=== PATIENT | female | born 1990 | race Caucasian/White ===

== ENCOUNTER → 2016-10-11 | Outpatient (CLI) | payer OTHER ==
--- NOTE | ~2016-10-11 | CR210 ---
[facility] A Service of [facility] & [facility] RADIOLOGY TEXT RESULTS PATIENT: FLAKITO HINOJOSA LOCATION: [facility] : [birth year] UNIT #: [id number] AGE: [address]: SEB AVILES MD SEX: F ORDER DR: [id number] [facility] [address] [place], [place] [address] [id number] MR#: [id number] Acc #: [id number] NAME: FLAKITO HINOJOSA : 1990 SEX: F STUDY DATE/TIME: 10/11/2016 13:19 UNIT: [facility] ROOM: STUDY DESCRIPTION: CR Ribs Uni 2 View W PA Ch Lt Attending Physician: Seb Aviles M.D. Ordering Physician: Seb Aviles M.D. Primary Care Physician: Seb Aviles M.D. MEDICAL IMAGING REPORT This report is preliminary unless electronic signature is present EXAM Frontal chest and left rib series, 10/11/2016 INDICATION 26-year-old female with left-sided rib pain. Sharp pain with bruising of a left rib. No known injury. Symptoms for a few days. TECHNIQUE Frontal chest and 2 views left ribs. No comparisons. FINDINGS Cardiac silhouette is within normal limits. Vascularity unremarkable. Lungs are clear. There is old healed granulomatous disease. No pneumothorax. No rib fracture. IMPRESSION Negative. Dictated by... Joaquim Barnes M.D. THIS IS AN ELECTRONICALLY VERIFIED REPORT Joaquim Barnes M.D. at 10/12/2016 7:43 AM Dominick TD: 10/11/2016 23:23 JOB #: [id number] MEDICAL IMAGING REPORT COPY
== END | disposition home or self-care (01) ==
LOC: CRAD 13:02
DX: R07.81 Pleurodynia (principal)
CPT/HCPCS: 71101

== ENCOUNTER 2016-10-31 08:00 | Inpatient (IN) | payer OTHER ==
--- NOTE | ~2016-10-31 | PA ---
Unit #: [id number] #: [id number] Patient: FLAKITO HINOJOSA [id number] [facility] [address] [place] [address] [id number] I MR#: [id number] NAME: FLAKITO HINOJOSA. ROOM: [facility] Age: 26 Sex: F Admission Date: 10/31/2016 : 1990 Date of Assessment: 11/01/2016 Attending Physician: Duane Ford M.D. Admitting Physician: Duane Ford M.D. Primary Care Physician: Tuyet Sesay M.D. PSYCHIATRIC ASSESSMENT DATE OF SERVICE 11/01/2016. INFORMANTS The patient, reliable; OLOP, reliable. CHIEF COMPLAINT Severe depression. HISTORY OF PRESENT ILLNESS Flakito is a 26-year-old woman who reports that she has been seen in [facility] and has had several medication adjustments recently. She is on Viibryd 40 mg daily, and both Abilify and Wellbutrin have been attempted as supplements with this medication without success. She has had increasing hopelessness and helplessness, and also feels that her "personality has changed." She has become more increasingly irritable and angry and recently broke up with a girlfriend as well as having increasing problems with other relationships. She woke up with suicidal ideation, and was unable to contract for safety. After assessment in the emergency room, she was transferred to [facility] for [facility] treatment. PAST PSYCHIATRIC HISTORY As noted, the patient is a client of [facility] and is currently seeing Dr. Gutierrez at [facility]. She denies any previous psychiatric hospitalizations. She is currently taking Viibryd 40 mg daily for depression and Wellbutrin XL 150 mg daily for antidepressant supplementation. FAMILY PSYCHIATRIC HISTORY There is a significant family history of bipolar disorder, alcoholism, and depression in the patient's family. SOCIAL HISTORY The patient finished partially through the eleventh grade. She has not been working due to her increasing depression and is currently living with a significant other. She has 2 children and these were being house by her parents. She has no current source of income. PAST MEDICAL HISTORY The patient reports she had a recent infection in her armpit which is being treated with antibiotics. Unit #: [id number] #: [id number] Patient: FLAKITO HINOJOSA MEDICATIONS Keflex 500 mg b.i.d. for further 10 days. ALLERGIES No known medication allergies. SUBSTANCE USE HISTORY The patient denied any history of chemical dependence. MENTAL STATUS EXAMINATION The patient presented as a neatly dressed and groomed woman who appeared her stated age. She demonstrated mild psychomotor agitation. Vital signs were temperature 98.5, pulse 94, respirations 20, and blood pressure 110/78. Her speech was spontaneous and easily understood. Her musculoskeletal examination demonstrated psychomotor agitation. Her mood was depressed and anxious with a congruent affect. She was alert and fully oriented. Her memory and concentration were fair to good. Her thought processes were goal directed with no active psychosis. She did report mildly psychotic symptoms prior to coming to the hospital including illusions of someone in the room with her. Her insight and judgment were fair. Her fund of knowledge and abstraction were fair. She continued to endorse suicidal ideation with a plan to overdose, but had no homicidal ideation. ASSETS AND LIABILITIES The patient is familiar with local resources and presents voluntarily for treatment. Liabilities include lack of response to current medication and recent relationship issues. ADMITTING DIAGNOSES AXIS I: Major depression with psychotic features, F33.3. AXIS II: Diagnosis deferred. AXIS III: Infection. AXIS IV: AXIS V: PSYCHIATRIC PLAN The patient was admitted and placed on suicide precautions. Viibryd for depression and Keflex for infection will be continued, but we will discontinue Wellbutrin and add Risperdal 1 mg at bedtime. She will enroll in dual diagnosis groups and activities, and physical examination and laboratory studies will be performed. Treatment goals are resolution of SI, improvement in mood, improvement in insight, and improvement in coping skills. DISCHARGE PLANNING Follow up with [facility]. ESTIMATED LENGTH OF STAY 5 days. Dictated by... Duane Ford M.D. Unit #: [id number] #: [id number] Patient: FLAKITO HINOJOSA [facility]/amina TD: 11/02/2016 02:14 JOB #: [id number] PSYCHIATRIC ASSESSMENT Page 1 of 1 X Duane Ford MD X PSYCHIATRIC ASSESSMENT
--- NOTE | ~2016-10-31 | PN ---
Unit #: [id number] #: [id number] Patient: FLAKITO HINOJOSA [id number] [facility] [address] [place] [address] [id number] I MR#: [id number] NAME: FLAKITO HINOJOSA. ROOM: P254 Age: 26 Sex: F Admission Date: 10/31/2016 : 1990 Attending Physician: Duane Ford M.D. Admitting Physician: Duane Ford M.D. Primary Care Physician: Malika Serna PROGRESS NOTES DATE 11/02/2016 DISCUSSION Flakito continues to have some mood lability but her affect is a little brighter today. She is alert and fully oriented. Her memory and concentration are fair to good. Her thought processes are goal directed with no active psychosis. She continues to report some suicidal ideation. ASSESSMENT Major depression. PLAN Continue current treatment plan. Dictated by... Malika Kline/mavish TD: 11/12/2016 23:25 JOB #: [id number] [facility] PROGRESS NOTES Page 1 of 1 X Duane Ford MD X PROGRESS NOTE
--- NOTE | ~2016-10-31 | CO ---
Unit #: [id number] #: [id number] Patient: FLAKITO HINOJOSA [id number] [place] [address] [id number] I MR#: [id number] NAME: FLAKITO HINOJOSA. ROOM: P254 Age: 26 Sex: F Admission Date: 10/31/2016 : 1990 Attending Physician: Duane Ford M.D. Primary Care Physician: Tuyet Sesay M.D. Consultation Date: 11/01/2016 CONSULTATION REPORT SUBJECTIVE Flakito is a 26-year-old who reports she has lost 10 to 15 pounds over the past few months. She has been depressed and appetite has been poor. We have been asked to see her because of her weight loss. The patient was seen for her admission H and P on 10/31/2016. Her weight was noted at 103 pounds with a height 5 feet 4 inches. PLAN Plan will be to add Ensure with each meal and at bedtime. She can follow up with her PCP upon discharge. Dictated by... Porsha Michelle P.A.-C. for Malika Cavazos/amina TD: 11/03/2016 03:23 JOB #: [id number] CONSULTATION REPORT Page 1 of 1 X Porsha Michelle CONSULTATION REPORT
--- NOTE | ~2016-10-31 | DS ---
Unit #: [id number] #: [id number] Patient: FLAKITO HINOJOSA [id number] [place] [address] [id number] I MR#: [id number] NAME: FLAKITO HNIOJOSA. ROOM: [facility] Age: 26 Sex: F Admission Date: 10/31/2016 : 1990 Discharge Date: 11/03/2016 Attending Physician: Duane Ford M.D. Primary Care Physician: Tuyet Sesay M.D. DISCHARGE SUMMARY REASON FOR ADMISSION Flakito is a 26-year-old woman, who reports she has been having several medication changes at [facility] without success, difficulty sleeping, increasing hopelessness and helplessness, and suicidal ideation following a recent breakup. She was unable to contract for safety and was admitted for stabilization. DIAGNOSTIC STUDIES LABORATORY RESULTS: Please see hospital chart. HOSPITAL COURSE The patient was admitted and placed on suicide precautions. The patient was slightly underweight and was placed on Ensure with meals and at bedtime. Wellbutrin was discontinued, and Risperdal 1 mg at bedtime was added too, Viibryd 40 mg daily for depression. She was also on Keflex for an infection, which was continued unchanged. She participated briefly in unit groups and activities, although was noncommittal about the therapy aspect of her treatment plan. On the date of discharge, she had a brighter mood, brighter affect, and was able to contract for safety with no suicidal ideation, intent, or plan. DISCHARGE DIAGNOSES AXIS I: Major depression with psychotic features. AXIS II: No diagnosis. AXIS III: Sinus infection. AXIS IV: AXIS V: DISCHARGE INSTRUCTIONS Follow up with [facility] for long-term psychiatric management. DISCHARGE MEDICATIONS Viibryd 40 mg daily for depression, risperidone 1 mg at bedtime for mood stability. The patient was to continue on Keflex 500 mg b.i.d. until gone for her current infection. CONDITION AT DISCHARGE Improved. PROGNOSIS Fair to good. Unit #: [id number] #: [id number] Patient: FLAKITO HINOJOSA DIET AND ACTIVITY Ad luana. Dictated by... Duane Ford M.D. [facility]/modl TD: 11/10/2016 01:46 JOB #: [id number] DISCHARGE SUMMARY Page 1 of 1 X Duane Ford MD DISCHARGE SUMMARY
--- NOTE | ~2016-10-31 | A ---
[facility] Nutrition Therapy DATE: 11/02/16 Patient: FLAKITO HINOJOSA Physician: SHASTA Address: [address] [place] [address] Room/Bed: [address], Zip: [place] [address] Admit Date: 10/31/16 Date of : [birth year] Height: 5 4 Weight: [id number] NUTRITIONAL ASSESSMENT: REASON: LOW BMI (17.7), NUTRITIONAL RISK POINT- UNINTENTIONAL WEIGHT LOSS PATIENT ADMITTED FOR SI AND DEPRESSION PMH: NONE Anthropometrics: HT: 5'4", WT: 103#, BMI: 17.7, %IBW: 86 Labs: 11/01/16- BUN: 8 Meds: RISPERDAL, DESYREL Assessment: CHART REVIEWED, EVENTS NOTED. PATIENT IS A 26 Y/O FEMALE ADMITTED FOR SI AND DEPRESSION. PATIENT IS CURRENTY UNEMPLOYED, LIVES WITH MOTHER AND 2 CHILDREN, USES MARIJUANA FREQUENTLY, AND HAS A HX OF METH AND LORTAB ABUSE. PATIENT STATED A POOR APPETITE WITH A 10# WEIGHT LOSS OVER LAST 2-3 WEEKS. NURSING REPORTS FAIR PO INTAKES. CURRENT PSYCH MEDS MAY CAUSE INCREASES IN WEIGHT AND APPETITE. PATIENT IS ON A REGULAR DIET AND RECEIVES ENSURE TID FOR ADDED NUTRIENT SUPPORT. PATIENT HAS A RASH TO HER ARMPIT, WITH NO OTHER SKIN BREAKDOWN OR GI ISSUES NOTED ATT. Dx: INADEQUATE NUTRIENT INTAKE R/T CURRENT CONDITION, DEPRESSION AEB SELF-REPORTED WEIGHT LOSS, DECREASED APPETITE, LOW BMI, NUTRITIONAL RISK POINT Intervention: 1. REGULAR DIET, 2. SUPPLEMENTATION, 3. MEDS PER MD, 4. PSYCH Monitoring, Evaluation and Goals: 1. ADEQUATE PO INTAKES >50% OF MEALS 2. PREVENT, CORRECT MICRO/MACRO NUTRIENT DEFICIENCIES 3. PROMOTE A STEADY WEIGHT GAIN TOWARDS A HEALTHY BMI OF 19-25, PREVENT FURTHER WEIGHT LOSS MONITOR: WEIGHTS, LABS, PO/FLUID INTAKES Recommendations: 1. CONTINUE REGULAR DIET AND ENSURE TID TOLERATED, AND OFFER SNACKS BETWEEN MEALS TO ENCOURAGE INCREASED CALORIC INTAKE 2. ENCOURAGE ADEQUATE PO AND FLUID INTAKES 3. OBTAIN WEIGHT ROUTINELY, EVERY 3-4 DAYS, TO ENSURE PATIENT RECEIVES ADEQUATE NUTRIENT INTAKE [facility] Nutrition Therapy DATE: 11/02/16 Patient: FLAKITO HINOJOSA Physician: SHASTA Address: [address] [place] [address] Room/Bed: [address], Zip: [place] [address] Admit Date: 10/31/16 Date of : [birth year] Height: 5 4 Weight: [id number] TO F/U PER PROTOCOL AND PRN R/T PATIENT MILDLY COMPROMISED Respectfully, ALFONZO ORLANDO RD, LD [facility] cc: client file
--- NOTE | ~2016-10-31 | HP ---
Unit #: [id number] #: [id number] Patient: FLAKITO HINOJOSA [id number] [place] [address] [id number] MR#: [id number] NAME: FLAKITO HINOJOSA. ROOM: [facility] Age: 26 Sex: F Admission Date: 10/31/2016 : 1990 Attending Physician: Duane Ford M.D. Admitting Physician: Duane Ford M.D. Primary Care Physician: Tuyet Sesay M.D. HISTORY AND PHYSICAL HISTORY OF PRESENT ILLNESS Flakito is a 26 year old admitted to [address] [place] [address] with depression and verbalizing wanting to hurt herself. PAST MEDICAL HISTORY Nothing significant PAST SURGICAL HISTORY 1. section x2 2. Pelvis lap, oophorectomy ALLERGIES No known drug allergies. SOCIAL HISTORY She does not smoke. Drinks alcohol and uses marijuana socially FAMILY HISTORY Medically noncontributory. REVIEW OF SYSTEMS CONSTITUTIONAL: No fever or chills. HEENT: Denies any sore throat, ear pain or runny nose. CARDIOVASCULAR: Denies chest pain, irregular heart rhythm or palpitations. CHEST: Denies shortness of breath or cough. No hemoptysis. GASTROINTESTINAL: Denies nausea, vomiting, diarrhea or chronic constipation. ENDOCRINE: Denies history of increased thirst or urination. No recent significant weight loss or gain. GENITOURINARY: Denies dysuria, frequency, or hematuria. SKIN: Denies any rashes. HEMATOLOGIC: Denies history of increased bleeding or bruising. MUSCULOSKELETAL: Denies any hot, swollen joints. No generalized muscle pain. NEUROLOGIC: Denies problems with vision or speech. No frequent, severe headaches. No numbness, tingling or weakness in any extremities. Denies loss of bladder or bowel control. CURRENT MEDICATIONS 1. Desyrel 50 mg q.h.s. p.r.n. 2. Milk of Magnesia p.r.n. 3. Maalox p.r.n. Unit #: [id number] #: [id number] Patient: FLAKITO HINOJOSA 4. Tylenol p.r.n. 5. Wellbutrin XL 150 mg daily 6. Viibryd 40 mg daily 7. Keflex 500 mg b.i.d. PHYSICAL EXAMINATION GENERAL: Alert, very thin, in no apparent distress. VITAL SIGNS: Blood pressure 122/86, heart rate 80, respirations 16, temperature 99.2. WEIGHT: 103 pounds. SKIN: Warm and dry without rash or lesion. HEENT: Normocephalic. TMs not viewed. Oral and nasal passages clear. Conjunctivae clear. Pupils equal, round and reactive to light and accommodation. Extraocular movements intact. NECK: Supple without lymphadenopathy or thyromegaly. HEART: Regular rate and rhythm without murmur. LUNGS: Clear. ABDOMEN: Soft, nontender. : Not done. EXTREMITIES: No evidence of cyanosis, clubbing or edema. Moves all extremities without focal deficit. NEUROLOGICAL: Grossly within normal limits. Cranial Nerves: II: Visual cheng are intact. III, IV AND : Extraocular movements are intact. Pupils are equal, round and reactive to light. V: Facial sensation is grossly normal. VII: Facial movements and expression are normal. VIII: Auditory acuity grossly intact. IX, X: Uvula is midline. Phonation is normal. XI: Patient shrugs shoulders and turns head normally. XII: Tongue protrudes in the midline. Sensory and Motor Function: Sensory and motor sensation is grossly normal. Motor: moves all extremities well. Coordination: Gait is normal. Deep Tendon Reflexes: Intact. IMPRESSION Psychiatric admission RECOMMENDATIONS PSYCHIATRIC: Per psychiatrist. MEDICAL: I see no contraindications to participating in facility's activities. MEDICAL PROGNOSIS Good. MEDICAL CONDITION Stable. Dictated by... Porsha Michelle P.A.-C. for Malika Cavazos/meera Unit #: [id number] #: [id number] Patient: FLAKITO HINOJOSA TD: 10/31/2016 20:32 JOB #: [id number] HISTORY AND PHYSICAL X Porsha Michelle X HISTORY AND PHYSICAL
[2016-11-01 09:41] LABS: BASOPHIL# 0.1 X10e3 (0-0.3); BASOPHIL% 1.4 % (0-2.5); EOSINOPHIL# 0.2 X10e3 (0-0.7); HEMATOCRIT 35.9 % (35.0-45.0); HEMOGLOBIN 11.3 gm/dL (12.0-16.0); LYMPHOCYTE# 1.8 X10e3 (1.0-3.5); LYMPHOCYTE% 47.4 % (17.0-45.0); MEAN CELL VOLUME 73.4 FL (83-96); MEAN CORPUSCULAR HGB CONC 31.3 g/dL (30-36); MEAN PLATELET VOLUME 7.7 FL (6.5-11.5); MONOCYTE# 0.4 X10e3 (0-1.0); MONOCYTE% 10.8 % (3.0-12.0); NEUTROPHIL# 1.3 X10e3 (1.5-7.1); NEUTROPHIL% 35.4 % (40-75); PLATELET COUNT 394 X10e3 (140-420); RED BLOOD COUNT 4.89 X10e (3.90-5.30); RED CELL DISTRIBUTION WIDTH 16.1 % (11.0-15.5); WHITE BLOOD COUNT 3.7 X10e3 (4.0-10.5)
[2016-11-01 09:44] LABS: DIFF IND NO
[2016-11-01 10:21] LABS: ALBUMIN SERUM 3.7 g/dL (3.5-5.0); ALKALINE PHOSPHATASE 41 U/L (32-92); ALT (SGPT) 11 U/L (10-40); AST (SGOT) 16 U/L (10-42); BILIRUBIN,TOTAL 0.3 mg/dL (0.2-2.0); BLOOD UREA NITROGEN 8 mg/dL (9-23); BUN/CREATININE RATIO 8.88; CALCIUM SERUM 9.4 mg/dL (8.4-10.2); CARBON DIOXIDE 29 mmol/L (22-31); CHLORIDE 103 mmol/L (100-111); CREATININE SERUM 0.9 mg/dL (0.6-1.4); GLOM FILT RATE Estimated ABOVE60 mL/min (>60); GLUCOSE FASTING 82 mg/dL (70-110); POTASSIUM 4.4 mmol/L (3.5-5.1); PROTEIN TOTAL SERUM 6.9 g/dL (6.0-8.3); SODIUM 140 mmol/L (135-145)
== END 2016-11-03 16:05 | disposition home or self-care (01) | DRG 885 ==
LOC: POF 08:00 → P2L 11:47
PROVIDERS: Psychiatry & Neurology Psychiatry
DX: F32.3 Major depressive disorder, single episode, severe with psychotic features (principal); L08.9 Local infection of the skin and subcutaneous tissue, unspecified; R63.4 Abnormal weight loss
CPT/HCPCS: 80053; 84703; 85025